=== PATIENT | male | born 1990 | race Caucasian/White ===

== ENCOUNTER 2016-12-01 17:38 | Emergency (ER) | payer OTHER ==
[~2016-12-01] VITALS: Ht 157.5 cm; Wt 44.6 kg
[2016-12-01 18:05] VITALS: BP 122/80
--- NOTE | 2016-12-01 19:53 | NUR ---
PT AMBULATED TO ER BED 08
--- NOTE | 2016-12-01 19:55 | NUR ---
PATIENT PRESENTS TO ED WITH C/O LEFT WRIST PAIN 7/10, RIGHT FOOT PAIN 10/10; DENIES N/V/D, INJURY PT SKIN IS PINK/WARM/DRY; AAOX4 WITH EVEN AND STEADY GAIT; LUNGS CLEAR BL; HR EVEN AND REGULAR; PT DENIES ANY FEVER, CP, SOB, OR COUGH AT THIS TIME; PATIENT STATES PAIN OF 10/10 AT THIS TIME; VSS; PATIENT POSITIONED FOR COMFORT; HOB ELEVATED; BEDRAILS UP X2; BED DOWN. ER MD MADE AWARE OF PT STATUS.
[2016-12-01 20:06] VITALS: BP 122/80
== END 2016-12-01 20:06 | disposition home or self-care (01) ==
LOC: MED 17:38
DX: M67.432 Ganglion, left wrist (principal); L84 Corns and callosities; Z88.1 Allergy status to other antibiotic agents
CPT/HCPCS: 99283

== ENCOUNTER 2017-08-24 00:28 | Emergency (ER) | payer SELFPAY ==
[~2017-08-24] VITALS: Ht 162.6 cm; Wt 47.6 kg
[2017-08-24 00:32] VITALS: BP 99/71
--- NOTE | 2017-08-24 00:40 | NUR ---
PT TAKEN TO BED 9
--- NOTE | 2017-08-24 01:00 | NUR ---
27/M CAME IN WITH , C/O 12/02 PRESSURE-LIKE/POKING PAIN ON LOWER BACK, LEFT GREATER THAN RIGHT, NONRADIATING, INTERMITTENT, X2 DAYS. PT DENIES TRAUMA. PT REPORTS TAKING IBUPROFEN AND BENGAY WITH SLIGHT RELIEF. PT DENIES N/V/D; SKIN IS INTACT, PINK/WARM/DRY; PT DENIES ANY FEVER, CP, SOB, OR COUGH AT THIS TIME; PATIENT POSITIONED FOR COMFORT; HOB ELEVATED; BEDRAILS UP X2; BED DOWN.
--- NOTE | 2017-08-24 01:05 | NUR ---
Dr. Conrad evaluating patient at bedside.
[2017-08-24] MEDS ORDERED: KETOROLAC 60 MG/2 ML VIAL IM ONE (01:10)
[2017-08-24 01:58] VITALS: BP 101/70
--- NOTE | 2017-08-24 01:58 | NUR ---
Patient discharged with v/s stable. Written and verbal after care instructions given and explained. Patient alert, oriented and verbalized understanding of instructions. Ambulatory with steady gait. All questions addressed prior to discharge. ID band removed. Patient advised to follow up with PMD. Rx of NAPROSYN 500MG given. Patient educated on indication of medication including possible reaction and side effects. Opportunity to ask questions provided and answered.
== END 2017-08-24 01:58 | disposition home or self-care (01) ==
LOC: MED 00:28
DX: M54.5 Low back pain (principal); M19.90 Unspecified osteoarthritis, unspecified site; Z88.1 Allergy status to other antibiotic agents
CPT/HCPCS: 81002; 96372; 99283; J1885

== ENCOUNTER 2018-10-08 17:59 | Emergency (ER) | payer BC ==
[~2018-10-08] VITALS: Ht 157.5 cm; Wt 49.2 kg
[2018-10-08 18:08] VITALS: BP 107/76
--- NOTE | 2018-10-08 19:31 | NUR ---
PT AMBULATED TO BED 07.
--- NOTE | 2018-10-08 19:45 | NUR ---
PT CAME IN C/O OF RIGHT HAND PAIN X 1 WEEK. PT HAS BEEN USING SIMPLE GREEN AT WORK WITH NO GLOVES. RIGHT HAND IS DRIED UP WITH BLISTERING. NO BLEEDING NOTED. PT PAIN LEVEL 6/10 WITH HAND MOVEMENT. NO MED HX. VSS. SAFETY MEASURES IN PLACE. WAITING FOR ERMD TO EVALUATE PT.
--- NOTE | 2018-10-08 21:00 | NUR ---
pt sitting in bed on cell phone. vss. will continue to monitor.
--- NOTE | 2018-10-08 21:03 | NUR ---
DR. LAWTON BEDSIDE EVALUATING PT
--- NOTE | 2018-10-08 21:27 | NUR ---
Patient discharged with v/s stable. Written and verbal after care instructions given and explained. Patient alert, oriented and verbalized understanding of instructions. Ambulatory with steady gait. All questions addressed prior to discharge. ID band removed. Patient advised to follow up with PMD. Rx of HYDROCORTISONE 2.5% TOPICAL CREAM given. Patient educated on indication of medication including possible reaction and side effects. Opportunity to ask questions provided and answered.
[2018-10-08 21:28] VITALS: BP 117/71
== END 2018-10-08 21:27 | disposition home or self-care (01) ==
LOC: MED 17:59
DX: L25.9 Unspecified contact dermatitis, unspecified cause (principal); Z88.1 Allergy status to other antibiotic agents
CPT/HCPCS: 99283

== ENCOUNTER 2018-10-12 21:38 | Emergency (ER) | payer BC ==
[~2018-10-12] VITALS: Ht 157.5 cm; Wt 49.9 kg
[2018-10-12 21:50] VITALS: BP 111/75
--- NOTE | 2018-10-12 21:54 | NUR ---
PT AMBULATED TO BED 3.
--- NOTE | 2018-10-12 22:02 | NUR ---
Dr. Trinh examining patient.
--- NOTE | 2018-10-12 22:18 | NUR ---
28 Y/O MALE BIB SELF. C/O RASH TO BILAT UPPER ARMS AND UPPER LEGS. SEEN ON THURSDAY GIVEN HYDROCORTIZONE. NO RELIEF. STATES SEVERE ITCHING. NO PAIN. NO NEW CONTACT WITH CHEMICALS. HX: DENIES
--- NOTE | 2018-10-12 22:26 | NUR ---
Patient discharged with v/s stable. Written and verbal after care instructions given and explained. Patient alert, oriented and verbalized understanding of instructions. Ambulatory with steady gait. All questions addressed prior to discharge. ID band removed. Patient advised to follow up with PMD. Rx OF PREDNIOSONE 50 MG AND BENADRYL ALLERGY 25 MG given. Patient educated on indication of medication including possible reaction and side effects. Opportunity to ask questions provided and answered.
[2018-10-12 22:27] VITALS: BP 111/75
== END 2018-10-12 22:06 | disposition home or self-care (01) ==
LOC: MED 21:38
DX: R21 Rash and other nonspecific skin eruption (principal); Z88.1 Allergy status to other antibiotic agents
CPT/HCPCS: 99283